=== PATIENT | male | born 1950 | race Caucasian/White ===

== ENCOUNTER 2017-07-06 07:00 | Emergency (ER) | payer OTHER ==
[~2017-07-06] VITALS: Ht 195.6 cm; Wt 113.4 kg
[2017-07-06 07:13] VITALS: Ht 195.6 cm; Wt 113.4 kg
[2017-07-06 10:25] VITALS: BP 138/90
== END 2017-07-06 10:25 | disposition home or self-care (01) ==
LOC: ED 07:00
DX: M62.830 Muscle spasm of back (principal); M62.838 Other muscle spasm; G44.209 Tension-type headache, unspecified, not intractable; G89.29 Other chronic pain; M54.9 Dorsalgia, unspecified; Z88.5 Allergy status to narcotic agent; Z88.8 Allergy status to other drugs, medicaments and biological substances
CPT/HCPCS: J1885; J2001